=== PATIENT | male | born 1985 | race Two or more races ===

== ENCOUNTER 2022-01-03 16:18 | Emergency (ER) | payer MEDICAID ==
[~2022-01-03] VITALS: Ht 180.3 cm; Wt 90.7 kg
--- NOTE | 2022-01-03 16:43 | NUR ---
TO ER BED 18, BIBS FOR MED CLEARANCE TO GO VOLUNTARY TO [facility] WITH SI PLAN TO RUN INTO TRAFFIC, AAOX3, BREATHING EVEN AND NON LABORED, PLEASANT AND COOPERATIVE, AWAITING MD ROA
--- NOTE | 2022-01-03 17:18 | NUR ---
URINE COLLECTED AND COVID SWAB DONE AND SENT TO LAB
[2022-01-03 17:26] LABS: BASOPHILS # (AUTO) 0.1 K/uL (0.0-0.2); BASOPHILS % (AUTO) 0.7 % (0.0-2.0); EOSINOPHILS % (AUTO) 5.4 % (0.0-6.0); HEMATOCRIT 42 % (39-51); HEMOGLOBIN 13.9 g/dL (13.5-17.5); LYMPHOCYTES # (AUTO) 2.4 K/uL (0.8-4.8); LYMPHOCYTES % (AUTO) 30.9 % (20.0-44.0); MEAN CORPUSCULAR HGB CONC 33 g/dl (31.0-36.0); MEAN CORPUSCULAR VOLUME 85 fL (80-96); MONOCYTES # (AUTO) 0.5 K/uL (0.1-1.30); MONOCYTES % (AUTO) 6.9 % (2.0-12.0); NEUTROPHILS # (AUTO) 4.4 K/uL (1.8-8.9); NEUTROPHILS % (AUTO) 56.1 % (43.0-81.0); PLATELET COUNT (AUTO) 246 K/uL (150-450); RED BLOOD CELL COUNT(AUTO) 4.96 MIL/uL (4.5-6.0); WHITE BLOOD COUNT (AUTO) 7.9 K/uL (4.3-11.0)
[2022-01-03 17:51] LABS: BILIRUBIN,URINE NEGATIVE (NEGATIVE); COLOR,URINE YELLOW (YELLOW); LEUKOCYTE ESTERASE ,URINE NEGATIVE (NEGATIVE); NITRITE, URINE NEGATIVE (NEGATIVE); PROTEIN,URINE 100 mg/dl (NEGATIVE); UGLUCOSE NEGATIVE (NEGATIVE); UROBILINOGEN,URINE 0.2 EU/dL (0.2)
[2022-01-03 17:51] LABS: ALANINE AMINOTRANSFERASE 31 U/L (12-78); ALBUMIN 3.6 g/dL (3.4-5.0); ALCOHOL, BLOOD < 3 mg/dL (0-0); ALKALINE PHOSPHATASE 126 U/L (46-116); ASPARTATE AMINOTRANSFERASE 14 U/L (15-37); BILIRUBIN,TOTAL 0.1 mg/dL (0.2-1.0); CALCIUM, SERUM 9.5 mg/dL (8.5-10.1); CARBON DIOXIDE 29 mmol/L (21-32); CHLORIDE 102 mmol/L (98-107); CREATININE 0.9 mg/dL (0.6-1.3); GLUCOSE 142 mg/dL (74-106); POTASSIUM 4.1 mmol/L (3.5-5.1); SODIUM SERUM 136 mmol/L (136-145); TOTAL PROTEIN, SERUM 7.2 g/dL (6.4-8.2); UREA NITROGEN, BLOOD 17 mg/dL (7-18)
[2022-01-03 18:06] LABS: ACETAMINOPHEN < 0 ug/ml (10-30)
[2022-01-03 18:08] LABS: BACTERIA,URINE Rare /HPF (None Seen); RBC,URINE NONE SEEN /HPF (0-2); SQUAMOUS EPITHELIAL CELL,UR Rare /HPF (None Seen); WBC,URINE 0-2 /HPF (0-3)
--- NOTE | 2022-01-03 19:04 | NUR ---
MEDICALLY CLEARED. [facility]
--- NOTE | 2022-01-03 19:17 | NUR ---
PACKAGE REC'D. CONFIRMED
--- NOTE | 2022-01-04 00:18 | NUR ---
PT IS ACCEPTED AT [facility] # FOR REPORT: [phone]
--- NOTE | 2022-01-04 01:25 | NUR ---
[facility] ETA: 30 MIN
--- NOTE | 2022-01-04 01:27 | NUR ---
REPORT GIVEN TO CANDIS MARQUIS FOR [facility]
--- NOTE | 2022-01-04 02:08 | NUR ---
[facility] AT BED SIDE TO [employer] THE PT
--- NOTE | 2022-01-04 02:22 | NUR ---
[facility]
[2022-01-04 04:16] VITALS: BP 128/82
== END 2022-01-04 02:22 ==
LOC: ER 16:24
DX: R45.851 Suicidal ideations (principal); E11.65 Type 2 diabetes mellitus with hyperglycemia; I10 Essential (primary) hypertension; F20.9 Schizophrenia, unspecified
CPT/HCPCS: 36415; 80048; 80076; 80143; 80307; 80320; 81001; 85025; 87426; 99285; C9803; G0480